=== PATIENT | male | born 1975 | race Caucasian/White ===

== ENCOUNTER 2016-08-17 19:16 | Emergency (ER) | payer MEDICAID ==
--- NOTE | 2016-08-17 20:53 | NUR ---
PT WAS CALLED SEVERAL TIMES IN 1HR SPAN. PT WAS NOT PRESENT
--- NOTE | 2016-08-17 21:22 | NUR ---
PT LEFT WITHOUT BEING TRIAGE
[2016-08-18] MEDS ORDERED: LORA2ORA PO (08:48)
[2016-08-18] MEDS ORDERED: QUET400T PO (08:48)
== END 2016-08-17 21:23 | disposition left against medical advice (07) ==
LOC: ER 19:26
DX: Z53.21 Procedure and treatment not carried out due to patient leaving prior to being seen by health care provider (principal)

== ENCOUNTER 2016-08-18 08:33 | Emergency (ER) | payer MEDICAID ==
[~2016-08-18] VITALS: Ht 188 cm; Wt 96.2 kg
[2016-08-18] MEDS ORDERED: LORA2ORA PO (08:48)
[2016-08-18] MEDS ORDERED: QUET400T PO (08:48)
[2016-08-18] MEDS: CLONAZEPAM 0.5 MG TABLET PO ONE (08:53)
--- NOTE | 2016-08-18 08:57 | NUR ---
pt is in room #1b. dr sierra evaluated the pt.
[2016-08-18] MEDS ORDERED: CLONAZEPAM 1 MG TABLET ONE (08:58)
[2016-08-18] MEDS: LORAZEPAM 2 MG/1 ML VIAL IM ONE (09:18)
[2016-08-18] MEDS ORDERED: LORAZEPAM 2 MG/1 ML VIAL ONE (09:24)
[2016-08-18 09:27] LABS: BASOPHILS # (AUTO) 0.2 K/uL (0.0-0.2); BASOPHILS % (AUTO) 1.6 % (0.0-2.0); EOSINOPHILS # (AUTO) 0.1 K/uL (0.0-0.7); EOSINOPHILS % (AUTO) 1.1 % (0.0-7.0); HEMATOCRIT 43.4 % (40.0-50.0); HEMOGLOBIN 14.9 g/dL (14.0-18.0); LYMPHOCYTES # (AUTO) 1.6 K/uL (0.8-4.8); LYMPHOCYTES % (AUTO) 13.7 % (20.5-51.5); MEAN CORPUSCULAR HEMOGLOBIN 31.7 uug (27.0-31.0); MEAN CORPUSCULAR HGB CONC 34 g/dL (32.0-37.0); MONOCYTES # (AUTO) 0.9 K/uL (0.1-1.30); MONOCYTES % (AUTO) 7.7 % (0.0-11.0); NEUTROPHILS # (AUTO) 8.7 K/uL (1.8-8.9); NEUTROPHILS % (AUTO) 75.9 % (38.5-71.5); PLATELET COUNT (AUTO) 264 K/uL (150-450); RED BLOOD CELL COUNT(AUTO) 4.71 MIL/uL (4.70-6.10); RED CELL DISTRIBUTION WIDTH 12.3 % (11.5-14.5); WHITE BLOOD COUNT (AUTO) 11.5 K/uL (4.0-11.2)
[2016-08-18] MEDS: OLANZAPINE 10 MG VIAL IM ONE (09:54)
[2016-08-18] MEDS ORDERED: OLANZAPINE 10 MG VIAL IM ONE (09:59)
[2016-08-18 10:03] LABS: ALANINE AMINOTRANSFERASE 23 U/L (16-63); ALKALINE PHOSPHATASE 94 U/L (50-136); ASPARTATE AMINOTRANSFERASE 22 U/L (15-37); BILIRUBIN,DIRECT 0.1 mg/dL (0.0-0.2); BILIRUBIN,TOTAL 0.7 mg/dL (0.2-1.0); CALCIUM 8.5 mg/dL (8.5-10.1); CARBON DIOXIDE 27 mmol/L (21-32); CHLORIDE 107 mmol/L (98-107); CREATININE 1.2 mg/dL (0.6-1.3); GFR 67 mL/min (>60); GLUCOSE 129 mg/dL (74-106); POTASSIUM 3.6 mmol/L (3.5-5.1); SODIUM SERUM 142 mmol/L (136-145); UREA NITROGEN, BLOOD 16 mg/dL (7-18)
[2016-08-18 10:04] LABS: ACETAMINOPHEN < 2.0 ug/mL (10-30)
[2016-08-18 10:06] LABS: ETHANOL < 3 MG/DL (0-0)
--- NOTE | 2016-08-18 12:27 | NUR ---
Sanjiv dalal in EDM - 08/18/16 at 1847 by DAVIDBIAN Pt dc;ed home w/ [email or web address].pt give nscript for prednisone and note for work.
--- NOTE | 2016-08-18 18:47 | NUR ---
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 ACCORDING TI HIS CONCLUSION PT CAN BE DISCHARGED FROM ER. DR PEDRO RE-EVALUATED THE PT. PT WAS D/C TO HOME. D/C INSTRUCTIONS WERE GIVEN TO THE PT. GAIT IS STABLE. NO S/S OF ACUTE DISTRESS AT THIS TIME. TAXI WAS CALLED BY SON LOPES BY PT REQUEST. PT WENT IN WAITING ROOM TO WAIT FOR TAXI.
[2016-08-18 18:52] VITALS: BP 139/75
== END 2016-08-18 18:54 | disposition home or self-care (01) ==
LOC: ER 08:33
DX: F29 Unspecified psychosis not due to a substance or known physiological condition (principal); R41.82 Altered mental status, unspecified; F31.9 Bipolar disorder, unspecified; E78.5 Hyperlipidemia, unspecified; I10 Essential (primary) hypertension; Z59.0 Homelessness
CPT/HCPCS: 36415; 80048; 80076; 85025; 96372 ×2; 99284; A4663; G0480; G0481; G0482; J2060; J2358; G6040-TC